=== PATIENT | female | born 1955 | race American Indian/Alaskan Native ===

== ENCOUNTER 2017-11-13 09:59 | Day surgery (SDC) | payer OTHER ==
[2017-11-10 13:56] VITALS: BMI 26.9
--- NOTE | 2017-11-13 12:05 | CP.SDSHP ---
Same Day Surgery H & P - History Proposed Procedure: colonoscopy Pre-Op Diagnosis: crc screen - Allergies Allergies: Allergies No Known Allergies Allergy (Verified 11/10/17 14:16) - Physical Exam Vital Signs: Vital Signs 11/13/17 10:40 Temperature 97.8 F Pulse Rate 57 L Respiratory 19 Rate Blood Pressure 117/73 O2 Sat by Pulse 99 Oximetry Mental Status: Alert & Oriented x3 Neuro: WNL Heart: WNL Lungs: WNL GI: WNL - {Optional Preform as Required} Abdomen: WNL - Impression Impression: crc screen Pt. Evaluated Today:Candidate for Anesthesia & Procedure: Yes - Date & Time Date: 11/13/17 Time: 12:05 Short Stay Discharge - Short Stay Discharge Admitting Diagnosis/Reason for Visit: ENCOUNTER FOR SCREENING FOR MALIGNANT NEOPLASM OF Disposition: HOME/ ROUTINE
[2017-11-13] MEDS ORDERED: Propofol 10 mg/ml Inj (20 ML) ONE (12:19)
[2017-11-13 12:50] VITALS: TEMP 97; O2SAT 100
[2017-11-13 14:01] VITALS: BP 109/58; PULSE 58; RESP 13
== END 2017-11-13 13:58 | disposition home or self-care (01) ==
LOC: C.ENDO 09:59
PROVIDERS: ATTEND Internal Medicine
DX: Z12.11 Encounter for screening for malignant neoplasm of colon (principal); K63.5 Polyp of colon; K64.8 Other hemorrhoids; D12.4 Benign neoplasm of descending colon; D12.5 Benign neoplasm of sigmoid colon; E11.9 Type 2 diabetes mellitus without complications; I10 Essential (primary) hypertension
CPT/HCPCS: 45380; 45385; 82948; 88305; J2001; J2704

== ENCOUNTER 2018-10-23 15:55 | Emergency (ER) | payer OTHER ==
[2018-10-23 15:55] VITALS: BMI 29.5
[2018-10-23 16:27] VITALS: BP 159/53; PULSE 79; RESP 20; TEMP 99; O2SAT 96
[2018-10-23] MEDS ORDERED: Fluorescein 1 mg Ophthalmic Strip OU ONE (17:12)
[2018-10-23] MEDS ORDERED: Tetracaine 0.5% Ophth 2 ML BOTTLE OU ONE (17:12)
[2018-10-23] MEDS ORDERED: Fluorescein 1 mg Ophthalmic Strip ONE (17:26)
[2018-10-23] MEDS ORDERED: Tetracaine 0.5% Ophth (OR ONLY) ONE (17:26)
[2018-10-23] MEDS ORDERED: Tobramycin/Dexamethasone (Tobradex) Opth Sol (2.5 ml) OU STA (17:36)
[2018-10-23] MEDS ORDERED: Tobramycin 0.3% OPH OINT OU STA (18:08)
--- NOTE | 2018-10-23 18:12 | C.PDOC ---
Time Seen by Provider: 10/23/18 17:02 Chief Complaint (Nursing): Eye Problem Past Medical History Vital Signs: Last Vital Signs Temp 99 F 10/23/18 16:24 Pulse 79 10/23/18 16:24 Resp 20 10/23/18 16:24 BP 159/53 H 10/23/18 16:24 Pulse Ox 96 10/23/18 16:24 - Medical History PMH: Arthritis (BOTH KNEES, HANDS), HTN, Hypercholesterolemia, Seizures (NO EPISODE OF SEIZURE FOR 2 YRS) Denies: Chronic Kidney Disease - Social History Hx Alcohol Use: No Hx Substance Use: No ED Course And Treatment O2 Sat by Pulse Oximetry: 96 Disposition Counseled Patient/Family Regarding: Studies Performed, Diagnosis, Need For Followup, Rx Given - Disposition Referrals: Chava Muñoz MD [Staff Provider] - Disposition: HOME/ ROUTINE Disposition Time: 18:15 Condition: STABLE Additional Instructions: follow up with opthamologist within tomorrow call to make an appointment use medication as prescribed return to ER immediately if symptoms worsens or progress Prescriptions: Dexamethasone/Tobramycin [Tobradex Opht Susp] 1 drop OU TID #1 bottle Instructions: Conjunctivitis (Pinkeye) (DC) Forms: General Discharge Instructions, [facility] (Monegasque), Work Excuse - Clinical Impression Clinical Impression: Conjunctivitis
--- NOTE | 2018-10-23 18:16 | C.PDOC ---
History Of Present Illness Patient is a 63 year old female who p[resents to the ED c/o bilateral eye redness and heaviness that began last night and has continued into this morning. Patient states that she has blurry vision in her right eye and her symptoms are more pronounced on her right. She states that her vision is now normal bilaterally. Patient wears glasses, no contacts. She denies any trauma, drug allergies, or previous eye issues. Time Seen by Provider: 10/23/18 17:02 Chief Complaint (Nursing): Eye Problem History Per: Patient History/Exam Limitations: no limitations Onset/Duration Of Symptoms: Days (1 ) Current Symptoms Are (Timing): Still Present Injury To Eye?: No Wears Contact Lens?: No Associated Symptoms: Other (blurry vision in right eye, heaviness and eye redness in bilateral eyes). denies: Decreased Vision Recent travel outside of the [place]: No Additional History Per: Patient Past Medical History Reviewed: Historical Data, Nursing Documentation, Vital Signs Vital Signs: Last Vital Signs Temp 99 F 10/23/18 16:24 Pulse 79 10/23/18 16:24 Resp 20 10/23/18 16:24 BP 159/53 H 10/23/18 16:24 Pulse Ox 96 10/23/18 16:24 - Medical History PMH: Arthritis (BOTH KNEES, HANDS), HTN, Hypercholesterolemia, Seizures (NO EPISODE OF SEIZURE FOR 2 YRS) Denies: Chronic Kidney Disease Surgical History: No Surg Hx Family History: States: No Known Family Hx - Social History Hx Alcohol Use: No Hx Substance Use: No Review Of Systems Except As Marked, All Systems Reviewed And Found Negative. Eyes: Positive for: Redness (bilateral) Physical Exam - Physical Exam Appears: Non-toxic, No Acute Distress Skin: Normal Color, Warm, Dry Eye(s): bilateral: Other (injected conjunctiva. fundoscopy normal bilateral. No proptosis, foreign body, or flouroscein uptake. 20/70 right eye. 20/50 left eye. ) Chest: Symmetrical Cardiovascular: Rhythm Regular, No Murmur Respiratory: Normal Breath Sounds, No Rales, No Rhonchi, No Wheezing Neurological/Psych: Oriented x3, Normal Speech, Normal Cognition ED Course And Treatment O2 Sat by Pulse Oximetry: 96 (on RA) Pulse Ox Interpretation: Normal Medical Decision Making Medical Decision Making: Plan: Tetracaine 0.5% 2drop OU Flourescein 2mg OU Tobrex 0.3% 1appl OU Case discussed with Ophthalmology . Suggested Tobradex and to treat for conjunctivitis. Disposition Counseled Patient/Family Regarding: Studies Performed, Diagnosis, Need For Followup, Rx Given - Disposition Referrals: Chava Muñoz MD [Staff Provider] - Disposition: HOME/ ROUTINE Disposition Time: 18:00 Condition: STABLE Additional Instructions: follow up with opthamologist within tomorrow call to make an appointment use medication as prescribed return to ER immediately if symptoms worsens or progress Prescriptions: Dexamethasone/Tobramycin [Tobradex Opht Susp] 1 drop OU TID #1 bottle Instructions: Conjunctivitis (Pinkeye) (DC) Forms: General Discharge Instructions, [facility] ([place]), Work Excuse - Clinical Impression Clinical Impression: Conjunctivitis - Scribe Statement The provider has reviewed the documentation as recorded by the Vidhya Almaguer All medical record entries made by the Ezibjasmin were at my direction and personally dictated by me. I have reviewed the chart and agree that the record accurately reflects my personal performance of the history, physical exam, medical decision making, and the department course for this patient. I have also personally directed, reviewed, and agree with the discharge instructions and disposition.
== END 2018-10-23 18:45 | disposition home or self-care (01) ==
LOC: C.ER 15:55
DX: H10.9 Unspecified conjunctivitis (principal); E78.00 Pure hypercholesterolemia, unspecified; I10 Essential (primary) hypertension

== ENCOUNTER 2018-10-25 09:45 | Outpatient (CLI) | payer OTHER | END 2018-10-25 09:46 | disposition home or self-care (01) | LOC: C.MRIC 09:45 ==

== ENCOUNTER → 2018-11-03 | Outpatient (CLI) | payer OTHER | LOC: C.CTH 09:45 ==

== ENCOUNTER 2018-12-21 10:24 | Outpatient (CLI) | payer OTHER | END 2018-12-21 10:25 | disposition home or self-care (01) | LOC: C.USIC 10:25 | DX: I65.29 Occlusion and stenosis of unspecified carotid artery (principal) ==